=== PATIENT | male | born 1955 | race Caucasian/White ===

== ENCOUNTER 2019-02-01 14:32 | Emergency (ER) | payer BC, MEDICARE ==
[~2019-02-01] VITALS: Ht 170.2 cm; Wt 84.1 kg
[2019-02-01 14:39] VITALS: TEMP 99.3
[2019-02-01] MEDS ORDERED: NORVASC 5MG5 MG/TAB PO (15:07)
[2019-02-01] MEDS ORDERED: CYMBALTA 20MG20 MG PO (15:08)
[2019-02-01] MEDS ORDERED: NORCO 325 MG-51 TAB PO ×2 (15:08→17:34)
[2019-02-01 15:29] LABS: COLLECTION METHOD CLEAN CATCH
[2019-02-01 15:38] LABS: MUCOUS Present /lpf; PH 6 (5-8); SQUAMOUS EPITHELIAL None Seen /hpf; URINE APPEARANCE Turbid; URINE BACTERIA Occasional /hpf; URINE BILIRUBIN Negative (NEGATIVE); URINE BLOOD 3+ (NEGATIVE); URINE COLOR Amber; URINE GLUCOSE Negative (NEGATIVE); URINE KETONE Negative (NEGATIVE); URINE LEUKOCYTE ESTERASE 2+ (NEGATIVE); URINE NITRATE Positive (NEGATIVE); URINE PROTEIN(semi-quant) 2+ (NEGATIVE); URINE RBC >50 /hpf; URINE UROBILINOGEN Negative (NEGATIVE)
[2019-02-01 15:58] LABS: BASO % 0.4 % (0.0-2.0); EOS # 0.1 (0.0-0.7); EOS % 1.4 % (0-4.0); GRAN % 75.5 % (42.2-75.2); HEMOGLOBIN 12.8 g/dl (13.5-18.0); LYMPH # 1.1 (1.2-3.4); LYMPH % 13.6 % (20.0-51.0); MEAN CELL VOLUME 87 fl (80.0-100.0); MEAN CORPUSCULAR HEMOGLOBIN 29 pg (27.0-31.0); MEAN CORPUSCULAR HGB CONC 33 g/dl (33.0-37.0); MEAN PLATELET VOLUME 8.7 fl (7.4-10.4); MONO # 0.7 (0.1-0.6); MONO % 8.7 % (1.7-9.3); PLATELET COUNT 287 K/mm3 (130-400); RED BLOOD COUNT 4.48 M/mm3 (4.20-5.60); REDCELL DISTRIBUTION WIDTH-CV 12.4 % (11.5-14.5)
[2019-02-01 16:08] LABS: ALBUMIN 3.4 gm/dL (3.5-5.0); BILIRUBIN,TOTAL 0.5 mg/dL (0.0-1.0); CALCIUM 8.9 mg/dL (8.4-10.2); CREATININE, serum 1.14 (0.66-1.25); POTASSIUM 3.7 mmol/L (3.4-5.0); TOTAL PROTEIN 6.9 gm/dL (6.4-8.2)
[2019-02-01 16:18] LABS: C-REACTIVE PROTEIN 12.3 mg/dL (0.0-0.9)
[2019-02-01] MEDS ORDERED: CEFTIN500 MG PO (17:34)
[2019-02-01 18:08] VITALS: BP 134/72; PULSE 85
== END 2019-02-01 18:10 | disposition home or self-care (01) ==
LOC: COL.ER 14:32
PROVIDERS: Emergency Medicine
DX: N39.0 Urinary tract infection, site not specified (principal); I10 Essential (primary) hypertension; Z90.79 Acquired absence of other genital organ(s)
CPT/HCPCS: A4216; J0696; J7030; Q9967